=== PATIENT | female | born 1930 | race Caucasian/White ===

== ENCOUNTER 2017-06-19 19:56 | Emergency (ER) | payer OTHER ==
[~2017-06-19 19:56] MED LIST: BENA20TA77 PO; CALC1CAP22 PO; FERR325T22 PO; LEVO25TA9 PO; METO50TA18 PO; SIMV40TA59 PO; SOLI5 PO
[2017-06-19 20:26] LABS: BASOPHILS % (AUTO) 0.9 % (0.0-5.0); EOSINOPHILS % (AUTO) 1.8 % (0.0-8.0); HEMATOCRIT 39.7 % (36-48); LYMPHOCYTES % (AUTO) 28.4 % (21.0-51.0); MEAN CORPUSCULAR HEMOGLOBIN 31.6 pg (27.0-33.0); MEAN CORPUSCULAR HGB CONC 34.8 g/dL (32.0-36.0); MONOCYTES % (AUTO) 9.8 % (3.0-13.0); NEUTROPHILS % (AUTO) 59.1 % (40.0-77.0); PLATELET COUNT (AUTO) 171 K/uL (130-400); RED BLOOD CELL COUNT(AUTO) 4.36 MIL/uL (4.00-5.50); RED CELL DISTRIBUTION WIDTH 13.2 % (11.0-15.5); WHITE BLOOD COUNT (AUTO) 7.7 K/uL (4.8-10.8)
[2017-06-19 20:32] LABS: APPEARANCE,URINE Clear (CLEAR); BILIRUBIN,URINE Negative (NEGATIVE); COLOR,URINE Dark Yellow (YELLOW); GLUCOSE, URINE (UA) Negative (NEGATIVE); KETONES,URINE Trace mg/dL (NEGATIVE); LEUKOCYTE ESTERASE ,URINE Small (NEGATIVE); NITRATE,URINE Negative (NEGATIVE); OCCULT BLOOD,URINE Negative (NEGATIVE); PROTEIN,URINE POS 1+ (NEGATIVE)
[2017-06-19 20:36] LABS: CREATININE 1.3 mg/dL (0.5-1.5)
[2017-06-19 20:40] LABS: BACTERIA,URINE None Seen /HPF (None Seen); MUCUS,URINE Few LPF (None Seen); RBC,URINE None Seen /HPF (0-1); WBC,URINE 0-1 /HPF (0-1)
[2017-06-19 20:47] LABS: B-TYPE NATRIURETIC PEPTIDE 85 pg/mL (0-100)
[2017-06-19 20:51] LABS: ALBUMIN 3.7 g/dL (3.5-5.0); BILIRUBIN,TOTAL 0.4 mg/dL (0.2-1.0); CREATINE KINASE MB 0.8 ng/mL (0.5-3.6); TOTAL PROTEIN, SERUM 7.3 g/dL (6.0-8.3)
[2017-06-19 20:59] LABS: INR 1.02 (0.85-1.15); PARTIAL THROMBOPLASTIN TIME 26.4 SEC (26.3-35.5); PROTHROMBIN TIME 10.7 SEC (9.6-11.6)
[2017-06-19] MEDS ORDERED: IPRATROPIUM/ALBUTEROL SULFATE 3 ML SOLUTION IH ONE (21:01)
[2017-06-19] MEDS ORDERED: SODIUM CHLORIDE 0.9% 1000ML 1,000 ML IV ONE (21:09)
[2017-06-19] MEDS ORDERED: METOPROLOL TARTRATE 25 MG TAB ONE (21:09)
[2017-06-19] MEDS ORDERED: CLONIDINE HCL 0.1 MG TABLET ONE (21:55)
[2017-06-19] MEDS ORDERED: AZITHROMYCIN 250 MG TABLET PO ONE (23:23)
[2017-06-19] MEDS ORDERED: ALBUTEROL SULFATE 0.083% 2.5 MG/3 ML INH IH ONE (23:32)
== END 2017-06-19 23:57 | disposition home or self-care (01) ==
LOC: EDH 19:56
DX: E86.0 Dehydration (principal); I10 Essential (primary) hypertension; J20.0 Acute bronchitis due to Mycoplasma pneumoniae
CPT/HCPCS: 36415; 71045; 80053; 81001; 82550; 82553; 83880; 84484; 85025; 85610; 85730; 87804 ×2; 93005; 94640 ×2; 96360; 96361; 99285; J7030